=== PATIENT | male | born 1990 | race Caucasian/White ===

== ENCOUNTER 2019-01-22 22:47 | Emergency (ER) | payer OTHER ==
[~2019-01-22] VITALS: Ht 175.3 cm; Wt 64.5 kg
[2019-01-23] MEDS ORDERED: TETANUS/DIPHTHERIA TOX ADSORB ADULT 0.5ML SYR/VIAL (90714) IM ONE
[2019-01-23 00:54] VITALS: BP 138/97
[2019-01-23] MEDS ORDERED: IBUPROFEN 600 MG TAB PO ONE (01:00)
[2019-01-23] MEDS ORDERED: BACITRACIN OINT 30GM TOP PRN (01:00)
== END 2019-01-23 01:09 | disposition home or self-care (01) ==
LOC: M ED 22:47
DX: S50.812A Abrasion of left forearm, initial encounter (principal); S40.212A Abrasion of left shoulder, initial encounter; S60.512A Abrasion of left hand, initial encounter; S80.819A Abrasion, unspecified lower leg, initial encounter; V18.0XXA Pedal cycle driver injured in noncollision transport accident in nontraffic accident, initial encounter; Y92.410 Unspecified street and highway as the place of occurrence of the external cause